=== PATIENT | female | born 1930 | race Caucasian/White ===

== ENCOUNTER 2020-04-29 13:07 | Emergency (ER) | payer MEDICARE, BC ==
[~2020-04-29 13:07] MED LIST: ASPIR-LOW81 MG PO; CALCIUM500 MG PO; CHOLEST OFF450 MG PO; ELIQUIS2.5 MG PO; FOLIC ACID 1 MG1 MG PO; GLUCOSAMINE CH1 EAC4 PO; IBU600 MG PO; MAGNESIUM400 M2 PO; NORCO 7.5-3251 EACH PO; NORVASC 5 MG TAB5 MG PO; VITAMIN B-121000 MCG PO; VITAMIN D32000 UNI1 PO
[2020-04-29 14:14] LABS: HEMOGLOBIN 16.2 gm/dl (12.3-15.3); RED BLOOD COUNT 5.13 M/UL (4.00-5.10); WHITE BLOOD COUNT 4.9 K/UL (4.5-11.0)
[2020-04-29 14:40] LABS: BUN/CREATININE RATIO 17 (0-10)
== END 2020-04-29 23:01 | disposition short-term general hospital (02) ==
LOC: ER1 13:07
PROVIDERS: Emergency Medicine
DX: G45.9 Transient cerebral ischemic attack, unspecified (principal); Z88.0 Allergy status to penicillin
CPT/HCPCS: 70450; 71045; 80053; 82550; 82553; 83874; 83880; 84484; 85025; 93005; 99285

== ENCOUNTER → 2020-05-19 | Outpatient (CLI) | payer MEDICARE, BC | LOC: RAD 08:00 | DX: R13.10 Dysphagia, unspecified (principal); Z20.822 Contact with and (suspected) exposure to COVID-19 | CPT/HCPCS: 74230; 92611-GN ==

== ENCOUNTER 2020-05-29 07:43 | Emergency (ER) | payer MEDICARE, BC ==
[2020-05-29 08:30] LABS: HEMOGLOBIN 15.5 gm/dl (12.3-15.3); RED BLOOD COUNT 4.93 M/UL (4.00-5.10); WHITE BLOOD COUNT 3.5 K/UL (4.5-11.0)
[2020-05-29 09:33] LABS: BUN/CREATININE RATIO 7 (0-10)
== END 2020-05-29 12:48 | disposition home or self-care (01) ==
LOC: ER1 07:43
PROVIDERS: Emergency Medicine
DX: R07.9 Chest pain, unspecified (principal); R06.02 Shortness of breath; I10 Essential (primary) hypertension; Z86.73 Personal history of transient ischemic attack (TIA), and cerebral infarction without residual deficits; Z20.822 Contact with and (suspected) exposure to COVID-19
CPT/HCPCS: 0241U; 71045; 80053; 81001; 82550; 82553; 83605; 83690; 83880; 84132; 84484; 85025; 85610; 85730; 87086; 93005; 99285; J3480

== ENCOUNTER → 2020-06-27 | Outpatient (CLI) | payer MEDICARE, BC | LOC: KOH-I 09:33 | DX: R05 Cough (principal) | CPT/HCPCS: 71046 ==

== ENCOUNTER 2020-07-07 10:22 | Emergency (ER) | payer MEDICARE, BC ==
[2020-07-07 11:10] LABS: HEMOGLOBIN 14.1 gm/dl (12.3-15.3); RED BLOOD COUNT 4.47 M/UL (4.00-5.10); WHITE BLOOD COUNT 5.5 K/UL (4.5-11.0)
[2020-07-07 11:50] LABS: BUN/CREATININE RATIO 13 (0-10)
[2020-07-07 15:33] LABS: BUN/CREATININE RATIO 13 (0-10)
[2020-07-07 17:47] LABS: BUN/CREATININE RATIO 9 (0-10)
== END 2020-07-07 18:45 | disposition home or self-care (01) ==
LOC: ER1 10:22
PROVIDERS: Emergency Medicine
DX: E87.1 Hypo-osmolality and hyponatremia (principal); I10 Essential (primary) hypertension; E78.5 Hyperlipidemia, unspecified; Z86.73 Personal history of transient ischemic attack (TIA), and cerebral infarction without residual deficits; N39.0 Urinary tract infection, site not specified
CPT/HCPCS: 70450; 71045; 80048; 80053; 81001; 82436; 82550; 82553; 82570; 83735; 83874; 83935; 84133; 84300; 84484; 85025; 99284

== ENCOUNTER → 2020-09-27 | Outpatient (CLI) | payer MEDICARE, BC | LOC: RAD 08:42 | DX: Z12.31 Encounter for screening mammogram for malignant neoplasm of breast (principal); R13.10 Dysphagia, unspecified | CPT/HCPCS: 74230; 77063; 77067; 92611-GN ==

== ENCOUNTER 2020-10-20 10:14 | Emergency (ER) | payer MEDICARE, BC | END 2020-10-20 13:14 | disposition home or self-care (01) | LOC: ER1 10:14 | DX: S93.402A Sprain of unspecified ligament of left ankle, initial encounter (principal); S10.91XA Abrasion of unspecified part of neck, initial encounter; E78.5 Hyperlipidemia, unspecified; I10 Essential (primary) hypertension; Z86.73 Personal history of transient ischemic attack (TIA), and cerebral infarction without residual deficits; Z88.0 Allergy status to penicillin; Z79.899 Other long term (current) drug therapy; W01.0XXA Fall on same level from slipping, tripping and stumbling without subsequent striking against object, initial encounter; Z23 Encounter for immunization | CPT/HCPCS: 73000; 73610; 90471; 90715; 99283 ==

== ENCOUNTER → 2020-10-23 | Outpatient (CLI) | payer MEDICARE, BC | LOC: RAD 09:35 | DX: M54.12 Radiculopathy, cervical region (principal); M48.02 Spinal stenosis, cervical region; W19.XXXA Unspecified fall, initial encounter | CPT/HCPCS: 72040 ==

== ENCOUNTER → 2020-10-26 | Outpatient (CLI) | payer MEDICARE, BC | LOC: KOH-I 15:10 | DX: M54.5 Low back pain (principal); M25.552 Pain in left hip; M25.551 Pain in right hip; M51.36 Other intervertebral disc degeneration, lumbar region; M51.37 Other intervertebral disc degeneration, lumbosacral region; M47.816 Spondylosis without myelopathy or radiculopathy, lumbar region; M16.11 Unilateral primary osteoarthritis, right hip; Z96.642 Presence of left artificial hip joint | CPT/HCPCS: 72100; 73522 ==

== ENCOUNTER 2020-10-29 10:07 | Emergency (ER) | payer MEDICARE, BC ==
[2020-10-29 10:45] LABS: HEMOGLOBIN 14.5 gm/dl (12.3-15.3); RED BLOOD COUNT 4.65 M/UL (4.00-5.10); WHITE BLOOD COUNT 3.6 K/UL (4.5-11.0)
== END 2020-10-29 13:29 | disposition home or self-care (01) ==
LOC: ER1 10:07
PROVIDERS: Family Medicine
DX: S09.90XA Unspecified injury of head, initial encounter (principal); R00.1 Bradycardia, unspecified; E87.1 Hypo-osmolality and hyponatremia; I10 Essential (primary) hypertension; Z86.73 Personal history of transient ischemic attack (TIA), and cerebral infarction without residual deficits; Z88.0 Allergy status to penicillin; Z79.82 Long term (current) use of aspirin; Z79.899 Other long term (current) drug therapy; W19.XXXA Unspecified fall, initial encounter
CPT/HCPCS: 70450; 80053; 81001; 84439; 84443; 85025; 93005; 99284

== ENCOUNTER → 2020-11-24 | Outpatient (CLI) | payer MEDICARE, BC ==
[~2020-11-24] VITALS: Ht 160 cm; Wt 69.9 kg
== END ==
LOC: OPSV 11:56
DX: S22.008A Other fracture of unspecified thoracic vertebra, initial encounter for closed fracture (principal); M81.0 Age-related osteoporosis without current pathological fracture
CPT/HCPCS: 96365; J3489